=== PATIENT | male | born 1980 | race Caucasian/White ===

== ENCOUNTER 2017-10-22 16:06 | Outpatient (REF) | payer MEDICAID, SELFPAY ==
[2017-10-24 14:10] LABS: HCV RNA Detection Quantitative Undetected IU/mL (UNDECT)
== END 2017-10-22 16:07 ==
LOC: NCHCN 16:06
PROVIDERS: PCP Family Medicine; Visit Provider Family Medicine
DX: B19.20 Unspecified viral hepatitis C without hepatic coma (principal)
CPT/HCPCS: 86803; 87522